=== PATIENT | female | born 1990 | race Caucasian/White ===

== ENCOUNTER 2018-05-23 12:46 | Emergency (ER) | payer MEDICAID, OTHER ==
[2018-05-23 12:47] VITALS: BMI 32.4
[2018-05-23 13:01] VITALS: O2SAT 100
[2018-05-23] MEDS ORDERED: Sodium Chloride 0.9% 1,000 ML IV ONE (13:13)
[2018-05-23 13:30] LABS: BASO # 0.1 K/uL (0.0-0.2); BASO % 0.7 % (0.0-2.0); EOS % 0.3 % (0.0-4.0); HEMOGLOBIN 15.6 g/dL (11.0-16.0); LYMPH # 2.2 K/uL (1.0-4.3); LYMPH % 27.2 % (20.0-40.0); MEAN CELL VOLUME 94.5 fL (81.0-99.0); MEAN CORPUSCULAR HEMOGLOBIN 32.4 pg (27.0-31.0); MEAN CORPUSCULAR HGB CONC 34.2 g/dL (33.0-37.0); MEAN PLATELET VOLUME 7.7 fL (7.2-11.7); MONO # 0.5 K/uL (0.0-0.8); MONO % 6.6 % (0.0-10.0); NEUT # 5.2 K/uL (1.8-7.0); NEUT % 65.2 % (50.0-75.0); NRBC % 0.1 % (0.0-2.0); RBC 4.82 Mil/uL (3.80-5.20); RED CELL DISTRIBUTION WIDTH 13.1 % (11.5-14.5)
--- NOTE | 2018-05-23 13:46 | C.PDOC ---
History Of Present Illness 28-year-old female presents to the ED for evaluation of dizziness and lightheadedness which began around 2 days ago. Episodes usually occur in the evening while at work. Patient reports feeling nauseous and having one episode of vomiting yesterday. Patient also complains of numbness in her foot which has been intermittent. Of note, patient states she was on Depo-Provera but has not received a shot in the past 4 months. She had her period in mid-March which lasted until April 11 and she has not menstruated since. Patient denies being sexually active for the past year and denies changes in appetite/PO intake, fever, chills, URI symptoms, cough, chest pain, palpitations or abdominal pain at this time. Time Seen by Provider: 05/23/18 13:13 Chief Complaint (Nursing): Syncope History Per: Patient History/Exam Limitations: no limitations Onset/Duration Of Symptoms: Days (2) Current Symptoms Are (Timing): Still Present Fall Associated With With Symptoms: No Additional History Per: Patient Past Medical History Reviewed: Historical Data, Nursing Documentation, Vital Signs Vital Signs: Last Vital Signs Temp 97.4 F L 05/23/18 12:55 Pulse 99 H 05/23/18 12:55 Resp 20 05/23/18 12:55 BP 129/73 05/23/18 12:55 Pulse Ox 100 05/23/18 12:55 - Medical History PMH: Anxiety Surgical History: No Surg Hx Family History: States: Unknown Family Hx - Social History Hx Tobacco Use: No Hx Alcohol Use: Yes Hx Substance Use: Yes - Immunization History Hx Tetanus Toxoid Vaccination: No Hx Influenza Vaccination: No Hx Pneumococcal Vaccination: No Review Of Systems Constitutional: Negative for: Fever, Chills, Other (decreased appetite or PO intake ) Cardiovascular: Negative for: Chest Pain, Palpitations Respiratory: Negative for: Cough Gastrointestinal: Positive for: Nausea, Vomiting. Negative for: Abdominal Pain Neurological: Positive for: Numbness, Dizziness, Other (lightheadedness ) Physical Exam - Physical Exam Appears: Non-toxic, No Acute Distress Skin: Normal Color, Warm, Dry Head: Atraumatic, Normacephalic Oral Mucosa: Moist Neck: Supple Chest: Symmetrical, No Deformity, No Tenderness Cardiovascular: Rhythm Regular, No Murmur Respiratory: Normal Breath Sounds, No Rales, No Rhonchi, No Wheezing Gastrointestinal/Abdominal: Soft, No Tenderness, No Guarding, No Rebound Extremity: Normal ROM, Capillary Refill (less than 2 seconds ) Neurological/Psych: Oriented x3, Normal Speech, Normal Cognition ED Course And Treatment - Laboratory Results Result Diagrams: 05/23/18 13:23 05/23/18 13:23 Lab Interpretation: Normal O2 Sat by Pulse Oximetry: 100 (on RA) Pulse Ox Interpretation: Normal Progress Note: Bloodwork and urinalysis ordered and reviewed. IV Fluids given. Orthostatic vitals normal. Patient developed a headache while in the ED and was treated with Tylenol. Reevaluation Time: 15:17 Reassessment Condition: Improved Disposition Counseled Patient/Family Regarding: Studies Performed, Diagnosis, Need For Fol lowup - Disposition Referrals: Christi Briceño MD [Staff Provider] - Disposition: HOME/ ROUTINE Disposition Time: 15:18 Condition: STABLE Instructions: Dizziness, Nonvertigo, (DC) Forms: [employer] ([place]ib[place]ian) - Clinical Impression Clinical Impression: Dizziness - Scribe Statement The provider has reviewed the documentation as recorded by the Scribe (Briana Hewitt) Provider Attestation: All medical record entries made by the Scribe were at my direction and personally dictated by me. I have reviewed the chart and agree that the record accurately reflects my personal performance of the history, physical exam, medical decision making, and the department course for this patient. I have also personally directed, reviewed, and agree with the discharge instructions and disposition.
[2018-05-23 13:47] LABS: ALB/GLOB RATIO 1.4 (1.0-2.1); ALBUMIN 4.8 g/dL (3.5-5.0); ALT/SGPT 14 U/L (9-52); AST/SGOT 37 U/L (14-36); BLOOD UREA NITROGEN 13 mg/dL (7-17); CALCIUM 9.2 mg/dl (8.6-10.4); GFR NON-AFRICAN AMERICAN > 60
[2018-05-23 15:07] LABS: SQUAMOUS EPITHIAL 16 /hpf (0-5); URINE BILIRUBIN NEGATIVE (NEGATIVE); URINE BLOOD NEGATIVE (NEGATIVE); URINE CLARITY Hazy (Clear); URINE COLOR Yellow (YELLOW); URINE GLUCOSE (UA) NORMAL (Normal); URINE LEUKOCYTE ESTERASE NEG Leu/uL (Negative); URINE PROTEIN NEGATIVE (NEGATIVE); URINE UROBILINOGEN NORMAL mg/dL (0.2-1.0)
[2018-05-23 15:15] VITALS: BP 117/68; PULSE 69; RESP 18; TEMP 98.6
== END 2018-05-23 15:31 | disposition home or self-care (01) ==
LOC: C.ER 12:46
DX: R42 Dizziness and giddiness (principal)
CPT/HCPCS: 80053; 81001; 84702; 85025; 87086; 99285; J7030